=== PATIENT | male | born 1940 | race Caucasian/White ===

== ENCOUNTER 2017-10-27 08:34 | Day surgery (SDC) | payer MEDICARE ==
[~2017-10-27] VITALS: Ht 177.8 cm; Wt 85.3 kg
[~2017-10-27 08:34] MED LIST: AMLO5 PO; ATORVASTATIN CA40 MG PO; Aspirin EC81 MG; CLOP75 PO; Isosorbide Mono30 MG PO; KRILL OIL500 MG PO; LOSHYD100 PO; MELO7.5 PO; Multiple Vitam1 EAC1 PO; NITR.4SL; Prilosec Otc20 MG; Transderm-Scop1 EACH TD
== END 2017-10-27 11:58 | disposition home or self-care (01) ==
LOC: ORSCSDS 08:34
PROVIDERS: Ophthalmology
PROC: 0W020ZZ Alteration of Face, Open Approach (ICD-10-PCS; principal; 2017-10-27 09:30)
DX: H02.411 Mechanical ptosis of right eyelid (principal); H02.412 Mechanical ptosis of left eyelid; G47.33 Obstructive sleep apnea (adult) (pediatric); I10 Essential (primary) hypertension; J45.909 Unspecified asthma, uncomplicated; Z79.899 Other long term (current) drug therapy
CPT/HCPCS: J1885; J2250; J2405; J3010

== ENCOUNTER 2018-01-26 07:08 | Day surgery (SDC) | payer MEDICARE ==
[~2018-01-26] VITALS: Ht 177.8 cm; Wt 86.5 kg
== END 2018-01-26 09:23 | disposition home or self-care (01) ==
LOC: ORSCSDS 07:08
PROVIDERS: Ophthalmology
PROC: 080N0ZZ Alteration of Right Upper Eyelid, Open Approach (ICD-10-PCS; principal; 2018-01-26 08:45)
PROC: 080P0ZZ Alteration of Left Upper Eyelid, Open Approach (ICD-10-PCS; principal; 2018-01-26 08:45)
DX: H02.831 Dermatochalasis of right upper eyelid (principal); H02.834 Dermatochalasis of left upper eyelid; I10 Essential (primary) hypertension; G47.33 Obstructive sleep apnea (adult) (pediatric); Z87.891 Personal history of nicotine dependence; Z79.899 Other long term (current) drug therapy
CPT/HCPCS: J2250; J7040

== ENCOUNTER 2019-11-03 11:43 | Day surgery (SDC) | payer MEDICARE ==
[~2019-11-03] VITALS: Ht 172.7 cm; Wt 87.0 kg
[~2019-11-03 11:43] MED LIST changes: +LOSARTAN-HCTZ1 EACH; +OMEPRAZOLE20 MG PO
[2019-11-03] MEDS ORDERED: MELATONIN5 M1 PO (12:02)
[2019-11-03] MEDS ORDERED: MECL12.5 PO (12:03)
--- NOTE | 2019-11-03 12:16 | NUR ---
Ambulatory in Day Surgery History, Chart, Medications and Allergies reviewed before start of procedure. Patient confirms NPO status and agrees with scheduled surgery. Patient States Post-Procedure ride home has been arranged.
--- NOTE | 2019-11-03 13:47 | NUR ---
11/03/19 1346 NELLY SINGLETARY History, Chart, Medications and Allergies reviewed before start of procedure.3-LEAD EKG REVIEWED WITH PHYSICIAN PRIOR TO START OF PROCEDURE.O2 VIA N/C INTACT THROUGHOUT SEDATION/PROCEDURE. MONITOR INTACT WITH CONTINUOUS PULSE OXIMETRY AND INTERMITTENT BP.MAC WITH DR. FRANCIS.
--- NOTE | 2019-11-03 15:09 | NUR ---
1550 DR PETERSEN ASKED TO SEE IF PATIENT COULD HAVE A BARIUM ENEMA PRIOR TO LEAVING THE HOSPITAL TODAY SINCE HE COULD NOT ADVANCE THE SCOPE PAST THE TRANSVERSE COLON. CALLED SCHEDULING AND SPOKE TO FRANSISCO. KEPT PT NPO, DISCHARGED FROM STEP AND TOOK PT TO ADMITTING TO HAVE BARIUM ENEMA DONE IN RAD DEPARTMENT PER SCHEDULING DEPARTMENT. PT AT SIDE DURING EVENT. ALL BELONINGS RETURNED TO PATIENT. Discharge instructions reviewed with patient. Patient verbalizes understanding. Copy given to patient to take home. Patient up to Ambulate independently. Gait steady. Patient States Post-Procedure ride home has been arranged. Discharged via wheelchair to private car for ride home.
== END 2019-11-03 23:47 | disposition home or self-care (01) ==
LOC: ORSCMMR 11:43 → ORSCSDS 13:30 → ORSCMMR 13:30
PROVIDERS: Internal Medicine Gastroenterology
PROC: 0DJD8ZZ Inspection of Lower Intestinal Tract, Via Natural or Artificial Opening Endoscopic (ICD-10-PCS; principal; 2019-11-03 13:30)
DX: Z12.11 Encounter for screening for malignant neoplasm of colon (principal); G47.30 Sleep apnea, unspecified; I10 Essential (primary) hypertension; Z79.899 Other long term (current) drug therapy
CPT/HCPCS: 74270; J2405; J2704; J7120